=== PATIENT | male | born 1980 | race Hispanic/Latino ===

== ENCOUNTER 2019-04-30 10:46 | Outpatient (CLI) | payer OTHER ==
--- NOTE | 2019-04-30 11:38 | RAD ---
3 VIEWS SACRUM AND COCCYX: Date: 04/30/19 HISTORY: Fall with coccyx pain. FINDINGS: 3 views of the sacrum/coccyx shows no evidence of displaced sacral or coccygeal fracture. The sacral ala are symmetric. Sacroiliac joints and pubic symphysis are unremarkable. IMPRESSION: Unremarkable exam. POS: [facility]
== END 2019-04-30 10:47 | disposition home or self-care (01) ==
LOC: BICRAD 10:46
PROVIDERS: ATTEND Internal Medicine
DX: M53.3 Sacrococcygeal disorders, not elsewhere classified (principal)
CPT/HCPCS: 72220